=== PATIENT | female | born 1985 | race Hispanic/Latino ===

== ENCOUNTER 2021-05-12 19:16 | Emergency (ER) | payer BC ==
[~2021-05-12] VITALS: Ht 149.9 cm; Wt 64.4 kg
== END 2021-05-12 22:57 | disposition left against medical advice (07) ==
LOC: EDH 19:16
DX: R07.89 Other chest pain (principal); Z53.21 Procedure and treatment not carried out due to patient leaving prior to being seen by health care provider; F41.9 Anxiety disorder, unspecified; Z98.890 Other specified postprocedural states
CPT/HCPCS: 93005

== ENCOUNTER → 2021-05-18 | Outpatient (CLI) | payer BC | END | disposition home or self-care (01) | LOC: RAH 12:48 | PROVIDERS: ATTEND Obstetrics & Gynecology | DX: N83.01 Follicular cyst of right ovary (principal); R10.2 Pelvic and perineal pain | CPT/HCPCS: 76856 ==

== ENCOUNTER → 2021-09-23 | Outpatient (CLI) | payer BC | END | disposition home or self-care (01) | LOC: RAH 07:47 | PROVIDERS: ATTEND Nurse Practitioner Family | DX: G43.909 Migraine, unspecified, not intractable, without status migrainosus (principal) | CPT/HCPCS: 70551 ==

== ENCOUNTER → 2022-12-12 | Outpatient (CLI) | payer BC | END | disposition home or self-care (01) | LOC: RAH 13:10 | PROVIDERS: ATTEND Nurse Practitioner Family | DX: M25.511 Pain in right shoulder (principal); M54.50 Low back pain, unspecified | CPT/HCPCS: 72148; 73221 ==

== ENCOUNTER 2023-03-11 13:03 | Emergency (ER) | payer BC ==
[~2023-03-11] VITALS: Ht 154.9 cm; Wt 62.1 kg
[2023-03-11 14:24] LABS: BASOPHILS % (AUTO) 0.5 % (0.0-5.0); EOSINOPHILS % (AUTO) 1.8 % (0.0-8.0); HEMATOCRIT 40.1 % (36-48); LYMPHOCYTES % (AUTO) 29.3 % (21.0-51.0); MEAN CORPUSCULAR HEMOGLOBIN 28.1 pg (27.0-33.0); MEAN CORPUSCULAR HGB CONC 33.2 g/dL (32.0-36.0); MEAN CORPUSCULAR VOLUME 84.8 fL (79-99); MONOCYTES % (AUTO) 6.3 % (3.0-13.0); NEUTROPHILS % (AUTO) 61.6 % (40.0-77.0); PLATELET COUNT (AUTO) 267 K/uL (130-400); RED BLOOD CELL COUNT(AUTO) 4.73 MIL/uL (4.00-5.50); RED CELL DISTRIBUTION WIDTH 12.6 % (11.0-15.5); WHITE BLOOD COUNT (AUTO) 6.7 K/uL (4.8-10.8)
[2023-03-11 14:27] LABS: APPEARANCE,URINE CLEAR (CLEAR); BILIRUBIN,URINE NEGATIVE (NEGATIVE); COLOR,URINE LIGHT-YELLOW (YELLOW); GLUCOSE, URINE (UA) NEGATIVE (NEGATIVE); KETONES,URINE NEGATIVE (NEGATIVE); LEUKOCYTE ESTERASE ,URINE NEGATIVE Leu/uL (NEGATIVE); NITRATE,URINE NEGATIVE (NEGATIVE); OCCULT BLOOD,URINE NEGATIVE (NEGATIVE); PROTEIN,URINE NEGATIVE (NEGATIVE); UROBILINOGEN,URINE 0.2 mg/dL (0.2-1.0)
[2023-03-11 14:30] LABS: BACTERIA,URINE RARE /HPF (None Seen); OTHER CASTS, URINE 1 /LPF (None Seen); SQUAMOUS EPITHELIAL CELL,UR MOD /HPF (0-2); WBC,URINE 0-1 /HPF (0-1)
[2023-03-11 14:35] LABS: CREATININE 0.8 mg/dL (0.5-1.5); POTASSIUM 4.2 mmol/L (3.5-5.1)
[2023-03-11 14:40] LABS: ALBUMIN 3.9 g/dL (3.5-5.0); TOTAL PROTEIN, SERUM 7.4 g/dL (6.0-8.3)
[2023-03-11] MEDS ORDERED: KETOROLAC 30MG VIAL (30MG/ML) IM ONE (15:30)
[2023-03-11] MEDS ORDERED: ONDANSETRON ODT 4MG TAB SL ONE (15:30)
[2023-03-11 17:26] VITALS: BP 103/52; PULSE 57; RESP 18; O2SAT 100
[2023-03-11] MEDS ORDERED: PHENAZOPYRIDINE HCL 200 MG TABLET ONE (17:30)
[2023-03-11] MEDS ORDERED: PHENAZOPYRIDINE HCL 200 MG TABLET PO ONE (17:30)
[2023-03-11] MEDS ORDERED: OXYB5TAB16 PO (17:36)
[2023-03-11] MEDS ORDERED: PHEN-846 PO (17:36)
== END 2023-03-11 18:04 | disposition home or self-care (01) ==
LOC: EDH 13:03
DX: R35.0 Frequency of micturition (principal); Z90.49 Acquired absence of other specified parts of digestive tract; Z90.710 Acquired absence of both cervix and uterus
CPT/HCPCS: 99284; 76700; 80053; 85025; 81001; 36415; 96372; J1885